=== PATIENT | male | born 1995 | race Hispanic/Latino ===

== ENCOUNTER 2024-11-12 08:03 | Emergency (ER) | payer SELFPAY ==
[2024-11-12] MEDS ORDERED: Proparacaine 0.5% Opth 15 ML BOT ONE (08:24)
[2024-11-12] MEDS ORDERED: Fluorescein Opthalmic Strip ONE (08:24)
== END 2024-11-12 09:03 | disposition home or self-care (01) ==
LOC: ERS 08:03
DX: S05.02XA Injury of conjunctiva and corneal abrasion without foreign body, left eye, initial encounter (principal); X58.XXXA Exposure to other specified factors, initial encounter
CPT/HCPCS: 99283